=== PATIENT | female | born 1935 | race Caucasian/White ===

== ENCOUNTER 2018-12-19 22:44 | Emergency (ER) | payer SELFPAY ==
[2018-12-19] MEDS ORDERED: SODIUM CHLORIDE 0.9% 500 ML 500 ML IV ONE (23:35)
--- NOTE | 2018-12-19 23:57 | Emergency Department Report ---
ED Chest Pain HPI - General Stated Complaint: FEVER,POSS PNEUMONIA Time Seen by Provider: 12/19/18 23:35 Source: patient, family, EMS, photovoltaic power systems engineer ([id number]) Mode of arrival: Stretcher Limitations: No Limitations - History of Present Illness Initial Comments: Mrs. Serrano is an 83 yo female with hx of DM, HTN, "three heart attacks" who presents with chest pain and back pain for 2-3 days. She feels hot. She has had nonproductive cough. Pain in back is worse with movement. Pain is persistent. Difficult to describe. History is limited with elderly patient. Daughter is at bedside was able to provide additional information. She is visiting from [place]. She has been with her daughter for the past 2 months. She plans to return home next week. MD Complaint: chest pain -: Gradual, days(s) (2-3) Onset: during rest Pain Location: substernal Pain Radiation: back Severity: moderate Quality: aching, dull Consistency: constant Improves With: nothing Worsens With: movement Context: recent illness (cough) Other Symptoms: cough, fever (felt warm to touch per EMS) Treatments Prior to Arrival: none - Related Data Home Medications Medication Instructions Recorded Confirmed Last Taken Amiodarone [Cordarone 200 MG TAB] 200 mg PO BID 12/20/18 12/20/18 Unknown Enalapril Maleate [Vasotec] 10 mg PO DAILY 12/20/18 12/20/18 Unknown metFORMIN [Glucophage] 500 mg PO BID 12/20/18 12/20/18 Unknown Previous Rx's Medication Instructions Recorded Last Taken Type DOXYCYCLINE Hyclate [Vibramycin 100 mg PO Q12HR 7 Days #14 capsule 12/20/18 Unknown Rx CAP] Allergies Allergy/AdvReac Type Severity Reaction Status Date / Time No Known Allergies Allergy Unverified 12/19/18 23:59 Heart Score - HEART Score History: Slightly suspicious EKG: Non-specific Age: > 65 Risk factors: 1-2 risk factors Troponin: < normal limit HEART Score: 4 ED Review of Systems ROS: Stated complaint: FEVER,POSS PNEUMONIA Other details as noted in HPI Comment: All other systems reviewed and negative Constitutional: fever Cardiovascular: chest pain Musculoskeletal: back pain ED Past Medical Hx - Past Medical History Hx Hypertension: Yes Hx Heart Attack/AMI: Yes Hx Diabetes: Yes - Family History Family history: diabetes, hypertension - Social History Smoking Status: Never Smoker Substance Use Type: None - Medications Home Medications: Home Medications Medication Instructions Recorded Confirmed Last Taken Type Amiodarone [Cordarone 200 MG TAB] 200 mg PO BID 12/20/18 12/20/18 Unknown History DOXYCYCLINE Hyclate [Vibramycin 100 mg PO Q12HR 7 Days #14 capsule 12/20/18 Unknown Rx CAP] Enalapril Maleate [Vasotec] 10 mg PO DAILY 12/20/18 12/20/18 Unknown History metFORMIN [Glucophage] 500 mg PO BID 12/20/18 12/20/18 Unknown History ED Physical Exam - General General appearance: alert, in no apparent distress, other (infrequent harsh cough nonproductive) - Head Head exam: Present: atraumatic, normocephalic - Eye Eye exam: Present: normal appearance - ENT ENT exam: Present: mucous membranes moist - Neck Neck exam: Present: normal inspection, full ROM - Respiratory Respiratory exam: Present: normal lung sounds bilaterally. Absent: respiratory distress, wheezes, rales, rhonchi - Cardiovascular Cardiovascular Exam: Present: regular rate, normal rhythm, normal heart sounds. Absent: systolic murmur, diastolic murmur, rubs, gallop - GI/Abdominal GI/Abdominal exam: Present: soft, normal bowel sounds. Absent: distended, tenderness, guarding, rebound - Extremities Exam Extremities exam: Present: normal inspection - Back Exam Back exam: Present: normal inspection - Neurological Exam Neurological exam: Present: alert, oriented X3 - Psychiatric Psychiatric exam: Present: normal affect, normal mood - Skin Skin exam: Present: warm, dry, intact, normal color. Absent: rash ED Course Vital Signs 12/19/18 12/19/18 12/20/18 23:48 23:56 01:00 Temperature 97.6 F 97.6 F Pulse Rate 84 81 79 Respiratory 16 16 18 Rate Blood Pressure 147/77 139/76 Blood Pressure 147/77 [Left] O2 Sat by Pulse 95 95 94 Oximetry 12/20/18 02:00 Temperature Pulse Rate 76 Respiratory 30 H Rate Blood Pressure 150/88 Blood Pressure [Left] O2 Sat by Pulse 95 Oximetry ED Medical Decision Making - Lab Data Result diagrams: 12/19/18 23:44 12/19/18 23:44 Laboratory Results - last 24 hr 12/19/18 12/19/18 12/19/18 23:44 23:44 23:44 WBC 5.9 RBC 5.13 H Hgb 14.9 H Hct 43.3 H MCV 85 MCH 29 MCHC 34 RDW 14.3 Plt Count 137 L Lymph % (Auto) 33.6 Desha % (Auto) 8.3 H Eos % (Auto) 0.8 Baso % (Auto) 0.4 Lymph # 2.0 Desha # 0.5 Eos # 0.0 Baso # 0.0 Seg Neutrophils % 56.9 Seg Neutrophils # 3.4 Sodium 134 L Potassium 4.5 Chloride 95.1 L Carbon Dioxide 23 Anion Gap 20 BUN 10 Creatinine 0.5 L Estimated GFR > 60 BUN/Creatinine Ratio 20 Glucose 214 H Lactic Acid 3.80 H* Calcium 9.1 Total Bilirubin 0.40 AST 21 ALT 12 Alkaline Phosphatase 77 Troponin T Total Protein 6.6 Albumin 4.0 Albumin/Globulin Ratio 1.5 12/19/18 23:59 WBC RBC Hgb Hct MCV MCH MCHC RDW Plt Count Lymph % (Auto) Desha % (Auto) Eos % (Auto) Baso % (Auto) Lymph # Desha # Eos # Baso # Seg Neutrophils % Seg Neutrophils # Sodium Potassium Chloride Carbon Dioxide Anion Gap BUN Creatinine Estimated GFR BUN/Creatinine Ratio Glucose Lactic Acid Calcium Total Bilirubin AST ALT Alkaline Phosphatase Troponin T < 0.010 Total Protein Albumin Albumin/Globulin Ratio - EKG Data 12/20/18 01:22 EKG obtained 0047 Normal sinus rhythm rate 80 beats a minute rightward axis prolonged QT interval no significant ST elevation no ischemic changes right bundle branch block - Radiology Data Radiology results: report reviewed radiology impression PCXR: Chronic appearing findings consistent of interstitial lung disease bibasilar atelectasis fibrosis suggestion of pulmonary arterial hypertension - Medical Decision Making Mrs. Serrano presents with cough, chest and back pain. I do not suspect PE with normal vitals signs. No evidence of heart strain on EKG. Ruled out for AR with troponin x 2 sets. I do not suspect ACS/UA after evaluation completed in the ED. Given antibiotics for acute bronchitis. Antibiotics are indicated in elderly patient with co-morbidities and severe symptoms. I used [place] phone photovoltaic power systems engineer to communicate with both daughter and patient during both incidences of history taking and discharge. Elevated lactic acidosis level attributed to metformin use. No evidence of SIRS or sepsis. Normal WBC. Critical care attestation.: If time is entered above; I have spent that time in minutes in the direct care of this critically ill patient, excluding procedure time. ED Disposition Clinical Impression: Acute bronchitis Disposition: DC-01 TO HOME OR SELFCARE Is pt being admited?: No Does the pt Need Aspirin: No Condition: Stable Instructions: Acute Bronchitis (ED) Prescriptions: DOXYCYCLINE Hyclate [Vibramycin CAP] 100 mg PO Q12HR 7 Days #14 capsule Referrals: MAGDA MARTINEZ MD [Staff Physician] - as needed Print Language: WOLOF
[2018-12-20 00:12] LABS: Basophils % (Auto) 0.4 % (0.0-1.8); Eosinophils % (Auto) 0.8 % (0.0-4.3); Hematocrit 43.3 % (30.3-42.9); Hemoglobin 14.9 gm/dl (10.1-14.3); Lymphocytes % (Auto) 33.6 % (13.4-35.0); Mean Corpuscular HGB Conc 34 % (30-34); Mean Corpuscular Volume 85 fl (79-97); Monocytes # (Auto) 0.5 K/mm3 (0.0-0.8); Monocytes % (Auto) 8.3 % (0.0-7.3); Platelet Count 137 K/mm3 (140-440); Red Blood Count 5.13 M/mm3 (3.65-5.03); Red Cell Distribution Width 14.3 % (13.2-15.2)
--- NOTE | 2018-12-20 00:14 | XRay Report ---
CHEST 1 VIEW INDICATION / CLINICAL INFORMATION: fever. COMPARISON: None available. FINDINGS: SUPPORT DEVICES: None. HEART / MEDIASTINUM: Cardiac silhouette is upper limits of normal for size. LUNGS / PLEURA: There is chronic appearing interstitial lung disease with right basilar atelectasis/f ibrosis. Bilateral pulmonary arteries appear prominent suggesting pulmonary arterial hypertension. Al though I do not. Convincing area of bacterial pneumonia, it would be difficult to exclude a subtle ar ea of pneumonia on this patient given the chronic findings. No pneumothorax. ADDITIONAL FINDINGS: No significant additional findings. IMPRESSION: 1. Chronic appearing findings within the thorax consistent of interstitial lung disease, bibasilar at electasis/fibrosis, and suggestion of pulmonary arterial hypertension. It would be difficult to compl etely exclude the possibility of bacterial pneumonia on this chest radiograph. Signer Name: Julienne Blandon MD Signed: 12/20/2018 12:10 AM Workstation Name: [id number]
[2018-12-20] MEDS ORDERED: ASPIRIN 81 MG TAB CHEW PO ONE (00:16)
[2018-12-20] MEDS ORDERED: DOXYCYCLINE 100 MG CAPSULE PO ONE (00:29)
[2018-12-20 00:35] LABS: Alanine Aminotransferase 12 units/L (7-56); BUN/Creatinine Ratio 20; Blood Urea Nitrogen 10 mg/dL (7-17); Calcium 9.1 mg/dL (8.4-10.2); Hemolysis Index 6
[2018-12-20 01:32] LABS: Bacteria,Urine 1+ /HPF (Negative); Bilirubin,Urine NEG (Negative); Blood,Urine NEG (Negative); Color,Urine Yellow (Yellow); Mucus,Urine 1+ /HPF; Protein,Urine <15 mg/dL mg/dL (Negative); Urobilinogen,Urine < 2.0 mg/dL (<2.0)
[2018-12-20 03:13] VITALS: BP 136/83
== END 2018-12-20 02:54 | disposition home or self-care (01) ==
LOC: EDBD → ED 22:44
DX: J20.9 Acute bronchitis, unspecified (principal); R07.89 Other chest pain; M54.9 Dorsalgia, unspecified; E11.9 Type 2 diabetes mellitus without complications; I10 Essential (primary) hypertension; I25.2 Old myocardial infarction; Z79.84 Long term (current) use of oral hypoglycemic drugs; Z79.899 Other long term (current) drug therapy
CPT/HCPCS: 36415; 71045; 80053; 81001; 82140; 84484; 85025; 87040; 87086; 93005; 93010; 99284; J7040; 87076; 87186